=== PATIENT | female | born 1960 | race Caucasian/White ===

== ENCOUNTER 2022-02-04 00:28 | Day surgery (SDC) | payer BC, SELFPAY ==
[2022-01-24 15:07] VITALS: BMI 28.8
[2022-02-04 09:51] VITALS: BP 146/82; PULSE 76; RESP 20; TEMP 36.4; O2SAT 100; BMI 28.6
[2022-02-04] MEDS: LACTATED RINGERS 1,000 ML 150 ML IV CONT (10:05)
--- NOTE | 2022-02-04 10:11 | P.PNAN_ITS ---
Anes - Initial Pre Proc Eval Procedure: Operation Date: 02/04/22 11:00 Proposed Procedures p Screening Colonoscopy - Adriel Modi MD Date/Time: 02/04/22 10:11 Surgeon: Adriel Modi MD Pre Op Diagnosis: neoplasm screening Patient Data Age: 61 Gender: F Height: 1.68 m Weight: 80.5 kg Last Vital Signs Temp 97.6 F 02/04/22 09:51 Pulse 76 02/04/22 09:51 Resp 20 02/04/22 09:51 BP 146/82 H 02/04/22 09:51 Pulse Ox 100 02/04/22 09:51 O2 Del Method Room Air 02/04/22 09:51 Allergies Allergy/AdvReac Type Severity Reaction Status Date / Time Penicillins Allergy Other Verified 02/04/22 09:49 Home Medications Medication Instructions Recorded Confirmed Type peg 3350-electrolytes 236 240 ml PO Q10M #4,000 mL 01/07/22 01/24/22 Rx gram-22.74 gram-6.74 gram-5.86 gram solution (Golytely) aspirin 81 mg tablet,delayed 81 mg PO DAILY 02/04/22 02/04/22 History release (Adult Low Dose Aspirin) estradiol 0.01% (0.1 mg/gram) 1 g vaginal WEEKLY 02/04/22 02/04/22 History vaginal cream ezetimibe 10 mg tablet 10 mg PO DAILY 02/04/22 02/04/22 History rosuvastatin 40 mg tablet 40 mg PO DAILY 02/04/22 02/04/22 History Patient hx anesthesia problems: none Family hx anesthesia problems: none Results Review: All pre-operative results and documents have been reviewed as part of the pre-operative evaluation. [facility] Social History Social History Smoking status: Former smoker Additional smoking assessment comments: quit in early 40's Drinks per week: 2 Substance use: never Substance use type: does not use Last use: early 40's (age) Living arrangements: with family Spiritual care concerns: No Anes - Eval Final PreProcedure Day of Procedure 02/04/22 10:11 Patient weight: obese Heart: regular rate and rhythm Lungs: clear to auscultation Airway: Mallampati scale class II Neurological: alert and oriented Last oral intake: >/= 8 hours ASA classification: II Emergent: no Anesthetic plan: proceed Anesthesia type and monitoring: general GIVS and standard monitoring Results Review: All pre-operative results and documents have been reviewed as part of the pre- operative evaluation. Informed Consent: The patient's anesthetic plan and its attendant risks and benefits were discussed with the patient/family/POA. Questions were solicited and answers provided to the satisfaction of the patient/family/POA.
--- NOTE | 2022-02-04 10:25 | P.HP_ITS ---
H&P: HPI History of Present Illness Date/Time: 02/04/22 10:25 Chief Complaint: Neoplasia screening. Narrative: This is a 61-year-old white female patient presents for screening colonoscopy. Patient reports her weight appetite bowel movements are normal. She denies abdominal pain. She has infrequent rectal pain and bleeding attributed hemorrhoids. Family history is noncontributory. Patient presents today for screening colonoscopy. Review of Systems Review of Systems: Review of systems noncontributory. [facility] Social History Social History Smoking status: Former smoker Additional smoking assessment comments: quit in early Drinks per week: 2 Substance use: never Substance use type: does not use Last use: early 40's (age) Living arrangements: with family Spiritual care concerns: No Meds Home Medications and Allergies Home Medications Medication Instructions Recorded Confirmed Type peg 3350-electrolytes 236 240 ml PO Q10M #4,000 mL 01/07/22 01/24/22 Rx gram-22.74 gram-6.74 gram-5.86 gram solution (Golytely) aspirin 81 mg tablet,delayed 81 mg PO DAILY 02/04/22 02/04/22 History release (Adult Low Dose Aspirin) estradiol 0.01% (0.1 mg/gram) 1 g vaginal WEEKLY 02/04/22 02/04/22 History vaginal cream ezetimibe 10 mg tablet 10 mg PO DAILY 02/04/22 02/04/22 History rosuvastatin 40 mg tablet 40 mg PO DAILY 02/04/22 02/04/22 History Allergies Allergy/AdvReac Type Severity Reaction Status Date / Time Penicillins Allergy Other Verified 02/04/22 09:49 Vital Signs Vital Signs - 24 hr 02/04/22 09:51 Temperature 97.6 F Pulse Rate 76 Respiratory Rate 20 Blood Pressure 146/82 H Pulse Oximetry 100 Oxygen Delivery Room Air Exam Narrative: Physical exam reveals patient to be alert. Vital signs stable. HEENT exam is unremarkable. Patient is anicteric. Lungs are clear to auscultation and percussion. Heart is without murmur or extra sounds. Abdominal exam bowel sounds are present soft nontender with no organomegaly. Digital external rectal exam is normal. Assessment and Plan Assessment and plan (1) Encounter for screening colonoscopy: Code(s): Z12.11 - Encounter for screening for malignant neoplasm of colon Status: Acute Assessment and Plan: Patient presents for screening colonoscopy. Appears to be at average risk for colon polyps. Further recommendations will be given after endoscopy.
[2022-02-04 10:51] VITALS: BP 107/67; PULSE 79; RESP 18; O2SAT 100
[2022-02-04 11:01] VITALS: BP 115/72; PULSE 76; RESP 22; O2SAT 100
[2022-02-04 11:11] VITALS: BP 117/73; PULSE 74; RESP 18; O2SAT 100
== END 2022-02-04 11:25 | disposition home or self-care (01) ==
PROVIDERS: PCP Internal Medicine; Visit Provider Internal Medicine Gastroenterology
PROC: 0DJD8ZZ Inspection of Lower Intestinal Tract, Via Natural or Artificial Opening Endoscopic (ICD-10-PCS; CPT 45378; principal; 2022-02-04 11:00)
DX: Z12.11 Encounter for screening for malignant neoplasm of colon (principal); D12.2 Benign neoplasm of ascending colon; K64.8 Other hemorrhoids; Z87.891 Personal history of nicotine dependence; Z79.82 Long term (current) use of aspirin
CPT/HCPCS: 45385; 88305; J2704; J7120